=== PATIENT | male | born 1940 | race Caucasian/White ===

== ENCOUNTER 2021-05-17 02:25 | Outpatient (CLI) | payer OTHER, SELFPAY ==
--- NOTE | 2021-05-17 10:31 | DI.RAD_ITS ---
Exam(s) XR CHEST 2V PA LATERAL EXAM: XR CHEST 2V PA LATERAL CLINICAL HISTORY: ? TB, CANNOT HAVE TB TEST DUE TO REACTION. TECHNIQUE: 2D digital imaging was performed. COMPARISON: No exams were available for comparison FINDINGS: Heart size is normal. The mediastinum is not widened. There is platelike atelectasis in both lower lobes, specifically in the posterior basal segments of b oth lower lobes. This is seen through the hemidiaphragms on the frontal view. Small nodular density in the right lung base is probably the breast nipple but recommend frontal view be repeated with bilateral metallic nipple markers in place. IMPRESSION: Bibasilar platelike atelectasis. An right lung base 6 millimeter nodule. Possibly the breast nipple. Recommend repeating frontal vie w with bilateral metallic nipple markers in place. DATA REPOSITORY: RADIATION DOSE DELIVERED:
== END 2021-05-17 02:45 ==
PROVIDERS: Visit Provider Family Medicine
DX: R91.1 Solitary pulmonary nodule; J98.11 Atelectasis
CPT/HCPCS: 71046

== ENCOUNTER 2023-08-18 13:23 | Emergency (ER) | payer OTHER, SELFPAY ==
[2023-08-18 13:30] VITALS: BP 170/72; PULSE 135; RESP 18; O2SAT 95
--- NOTE | 2023-08-18 13:30 | RT.EKG_ITS ---
APPROVED REPORT Exam: Resting ECG Reason for Exam: tachycardia Patient Location: E HR:113 bpm ECG Measurements Heart Rate 113 AXIS SC 212 P 53 QRSd 77 QRS 15 QT 303 T 15 QTc 415 Conclusion Sinus tachycardia...rate> 99 Borderline prolonged SC interval...SC >207, V-rate 91-120
--- NOTE | 2023-08-18 14:00 | DI.RAD_ITS ---
Exam(s) XR CHEST 2V PA LATERAL EXAM: XR CHEST 2V PA LATERAL CLINICAL HISTORY: cough TECHNIQUE: 2D digital imaging was performed of the chest. Two images were obtained. PA and lateral views were obtained. COMPARISON: CR XR CHEST 2V PA LATERAL from 05/17/2021 FINDINGS: MEDIASTINUM: Normal. HEART: Normal. PULMONARY VASCULATURE: Normal. There is tortuosity of the thoracic aorta. LUNGS: Linear atelectasis is seen in the lateral aspect of the left lung base. No focal consolidatin g infiltrate is present. PLEURAL SPACE: No pleural effusion or pneumothorax. BONE:Within normal limits for the patient's age. OTHER FINDINGS:Normal. IMPRESSION: No acute pulmonary findings. DATA REPOSITORY: RADIATION DOSE DELIVERED:
[2023-08-18 14:27] LABS: Abs Immature Grans 0.04 10^3/uL (0.0-0.06); Absolute Basophil Count 0.06 10^3/uL (0.0-0.2); Absolute Eosinophil Count 0.27 10^3/uL (0.0-0.7); Absolute Lymphocyte Count 1.11 10^3/uL (1.2-3.4); Absolute Monocyte Count 1.29 10^3/uL (0.1-0.8); Absolute Neutrophil Count 5.39 10^3/uL (1.2-6.7); Basophils % 0.7; Eosinophils % 3.3; HCT 43.5 % (40.0-50.0); HGB 14.5 g/dL (13.5-17.5); Immature Grans % 0.5; Lymphocytes % 13.6; MCH 29.4 pg (27.0-33.0); MCHC 33.3 % (32.0-36.0); MCV 88 fL (80-95); MPV 10.6 fL (8.0-11.0); Monocytes % 15.8; Neutrophils % 66.1; Platelet Count 166 10^3/uL (130-400); RBC 4.93 10^6/uL (4.36-5.78); RDW 12.7 % (11.8-14.1); RDW-SD 41.2 fL; WBC 8.16 10^3/uL (4.4-10.8)
[2023-08-18 14:52] LABS: ALT 37 U/L (16-63); AST 26 U/L (15-37); Alkaline Phosphatase 118 U/L (46-116); Anion Gap 7.8 mmol/L (3-11); BUN 14 mg/dL (7-18); Bilirubin, Total 1.1 mg/dL (0.2-1.0); CO2 28.2 mmol/L (21.0-32.0); CREATININE 1.5 mg/dL (0.70-1.30); Calcium 9.6 mg/dL (8.5-10.1); Chloride 102 mmol/L (98-107); Estimated GFR 46.19 (mL/min/1.73m2); Glucose 128 mg/dL (74-106); Magnesium 2.2 mg/dL (1.8-2.4); Potassium 3.7 mmol/L (3.5-5.1); Sodium 138 mmol/L (136-145); Total Protein 7.7 g/dL (6.4-8.2); Troponin I < 50 ng/L (<or=60)
[2023-08-18 15:05] LABS: Influenza A PCR Negative (Negative); Influenza B PCR Negative (Negative); RSV PCR Negative (Negative)
[2023-08-18 15:06] LABS: Source Nasopharynx
[2023-08-18 15:07] LABS: COVID-19 PCR Positive (Negative)
--- NOTE | 2023-08-18 15:15 | DI.VRAD_ITS ---
PROCEDURE INFORMATION: Exam: XR Chest Exam date and time: 08/18/2023 2:29 PM Age: 83 years old Clinical indication: Cough TECHNIQUE: Imaging protocol: Radiologic exam of the chest. Views: 2 views. COMPARISON: CR XR CHEST 2V PA LATERAL 01/19/2021 10:29 FINDINGS: Limitations: Single lateral view of the chest was submitted for interpretation. Lungs: No focal infiltrate. Pleural spaces: Unremarkable. No pleural effusion. No pneumothorax. Heart/Mediastinum: Unremarkable. No cardiomegaly. Bones/joints: Multilevel degenerative changes of the spine. Anterior wedging of midthoracic vertebra. IMPRESSION: No acute cardiopulmonary findings. Only a single lateral view was submitted for interpretation. Dictated and Authenticated by: Neela Schroeder MD. Ordering:SPENCER Thompson MD
[2023-08-18] MEDS: Lactated Ringers 500 ML 1000 ML IV (15:21)
--- NOTE | 2023-08-18 15:26 | W.ED.GENAD ---
Discharge Plan Disposition Patient Disposition: Home Condition: Stable Discharge Details Clinical Impression: COVID-19 Primary Care Provider: Unknown,Unknown ED Provider: Jay Simon Home Meds and New Rx's Prescriptions: New Paxlovid 150-100 mg tablets,dose pack See Rx Instructions .ROUTE .COMPLEX Qty: 20 0RF Rx Instructions: orally per package directions Continued pyridostigmine bromide [Mestinon] 60 mg tablet 60 mg PO Q6H Held trazodone 50 mg tablet 50 mg PO QHS Hold Instructions: Resume on 08/23/23. atorvastatin 80 mg tablet 80 mg PO DAILY Hold Instructions: Resume on 08/23/23. Discharge Instructions Instructions: COVID-19 (Coronavirus Disease 2019) (ED) Additional Instructions: Please maintain home isolation for the next 5 days. Wear a high-quality mask if you must be around others at home and in public. Do not go places where you are unable to wear a mask. For travel guidance, see [facility]?s Travel webpage. Do not travel. Stay home and separate from others as much as possible. Use a separate bathroom, if possible. Take steps to improve ventilation at home, if possible. Don?t share personal household items, like cups, towels, and utensils. Monitor your symptoms. If you have an emergency warning sign (like trouble breathing), seek emergency medical care immediately. You may end isolation after day 5 if your symptoms are improving and you are fever free for 24 hours without the use of fever reducing medication. If your symptoms are not improving at day 5 continue to isolate until symptoms are improving and you are fever free for 24 hours without the use of fever reducing medication. Please contact your primary care physician to arrange follow-up. Return to the ER immediately for any worsening or new concerning symptoms. Discharge Data Discharge Date/Time-TO BE ENTERED AT DEPARTURE: 08/18/23 16:03 Medical Decision Making 83-year-old male here with elevated heart rate on home check with associated cough and congestion over the past couple days. Patient saturating well no respiratory distress. He is tachycardic on arrival. Patient appears mildly dehydrated. I will give IV fluid bolus. Considered COVID illness versus pneumonia. COVID test result is positive. Chest x-ray reviewed and interpreted by radiology: No acute pulmonary findings. Plan to start treatment with Paxlovid. I called telemetry pharmacy and they are recommending holding atorvastatin and either holding or cutting trazodone in half over the next 5 days. They recommend renal leave dosing Paxlovid. Paxlovid course administered here with instructions. Patient reassessed and heart rate has normalized. He continues saturating well in no respiratory distress. Plan for discharge with outpatient follow-up. Usual customary discharge instructions reviewed with the patient. HPI General Mode of arrival: ambulatory. Date/Time Provider Initiated Documentation: 08/18/23 13:48. Limitations to Documentation: no limitations. Information obtained by: patient. HPI Narrative: 83-year-old male here with elevated heart rate on home check with associated cough and congestion over the past couple days. Patient notes heart rate in the 120s to 130s. Cough and congestion is mild. No associated shortness of breath. Related Data Home Medications Medication Instructions Recorded Confirmed atorvastatin 80 mg tablet 80 mg PO DAILY 08/18/23 08/18/23 nirmatrelvir 150 mg-ritonavir 100 See Rx Instructions PO .COMPLEX 08/18/23 mg tablets in a dose pack #20 dose pk (Paxlovid) pyridostigmine bromide 60 mg 60 mg PO Q6H 08/18/23 08/18/23 tablet (Mestinon) trazodone 50 mg tablet 50 mg PO QHS insomnia 08/18/23 08/18/23 Previous Rx's Medication Instructions Recorded nirmatrelvir 150 mg-ritonavir 100 See Rx Instructions PO .COMPLEX 08/18/23 mg tablets in a dose pack #20 dose pk (Paxlovid) Allergies Allergy/AdvReac Type Severity Reaction Status Date / Time No Known Allergies Allergy Unverified 08/18/23 13:32 General Stated Complaint: Arrhythmia SWETA: 2 Review of Systems Constitutional Constitutional: Denies fever(s) Respiratory Respiratory: Reports as per HPI PFSH All Active Problems COVID-19 (Acute) Social History Smoking/Tobacco Use Status: Former Tobacco Use Smoking risk assessment performed?: Yes Alcohol Intake: former Drug use: Never Substance use type: does not use Housing: apartment Do you feel safe at home: Yes Do you feel safe in your relationship?: Yes Additional Social history: lives alone. Tonio RN 08/18/23 Exam Const General: cooperative and no acute distress [facility] Mouth: moist mucous membranes Eyes Conjunctivae: normal conjunctivae Sclera: normal sclerae Neck Neck: trachea midline and supple Resp Auscultation: clear to auscultation bilaterally, no rales, no rhonchi and no wheezes Cardio Rate: tachycardic Rhythm: regular rhythm GI Palpation: soft, not firm, no guarding, no masses, not rigid and nontender Skin General skin exam: no rashes or lesions noted Neuro General: patient alert, patient awake and tone normal Extrem General: no edema Psych Appearance: grossly normal Mental Status: mental status grossly normal Course Vital Signs Vital signs: Vital Signs Pulse 135 H 08/18/23 13:30 Respiratory Rate 18 08/18/23 13:30 Blood Pressure 170/72 H 08/18/23 13:30 Pulse Oximetry 95 08/18/23 13:30 Pulse 135 H 08/18/23 13:30 Respiratory Rate 18 08/18/23 13:30 Respiratory Effort Normal, Non-Labored 08/18/23 13:35 Blood Pressure 170/72 H 08/18/23 13:30 Pulse Oximetry 95 08/18/23 13:30 Lab/Test Results Lab/Test Results: Laboratory Tests Range/Units 08/18/23 08/18/23 14:20 14:23 WBC (4.4-10.8) 10^3/uL 8.16 RBC (4.36-5.78) 10^6/uL 4.93 Hgb (13.5-17.5) g/dL 14.5 Hct (40.0-50.0) % 43.5 MCV (80-95) fL 88 MCH (27.0-33.0) pg 29.4 MCHC (32.0-36.0) % 33.3 RDW (11.8-14.1) % 12.7 Plt Count (130-400) 10^3/uL 166 MPV (8.0-11.0) fL 10.6 Immature Gran % 0.5 Neutrophils % 66.1 Lymphocytes % 13.6 Monocytes % 15.8 Eosinophils % 3.3 Basophils % 0.7 Nucleated RBC % (0.0-0.3) % 0.0 Absolute Neutrophils (1.2-6.7) 10^3/uL 5.39 Absolute Lymphocytes (1.2-3.4) 10^3/uL 1.11 L Absolute Monocytes (0.1-0.8) 10^3/uL 1.29 H Absolute Eosinophils (0.0-0.7) 10^3/uL 0.27 Absolute Basophils (0.0-0.2) 10^3/uL 0.06 Sodium (136-145) mmol/L 138 Potassium (3.5-5.1) mmol/L 3.7 Chloride (98-107) mmol/L 102 Carbon Dioxide (21.0-32.0) mmol/L 28.2 Anion Gap (3-11) mmol/L 7.8 BUN (7-18) mg/dL 14 Creatinine (0.70-1.30) mg/dL 1.5 H Est GFR (CKD-EPI 2020) (mL/min/1.73m2) 46.19 Glucose (74-106) mg/dL 128 H Calcium (8.5-10.1) mg/dL 9.6 Magnesium (1.8-2.4) mg/dL 2.2 Total Bilirubin (0.2-1.0) mg/dL 1.1 H AST (15-37) U/L 26 ALT (16-63) U/L 37 Alkaline Phosphatase (46-116) U/L 118 H Troponin I (<or=60) ng/L < 50 Total Protein (6.4-8.2) g/dL 7.7 Albumin (3.4-5.0) g/dL 4.0 TSH (0.36-3.74) uIU/mL 1.00 COVID-19 Source Nasopharynx SARS-CoV-2 (PCR) (Negative) Positive A Influenza Type A (PCR) (Negative) Negative Influenza Type B (PCR) (Negative) Negative RSV (PCR) (Negative) Negative
== END 2023-08-18 16:03 | disposition home or self-care (01) ==
PROVIDERS: Emergency Provider Student in an Organized Health Care Education/Training Program
DX: U07.1 COVID-19 (principal); R00.0 Tachycardia, unspecified
CPT/HCPCS: 36415; 80053; 87426; 87637; 93005; 96365; 99284; 71046; 83735; 84443; 84484; 85025; 93010